=== PATIENT | male | born 1945 | race Caucasian/White ===

== ENCOUNTER 2020-02-09 07:05 | Day surgery (SDC) | payer MEDICARE ==
[2020-02-09] MEDS ORDERED: fentaNYL 100 MCG/2 ML SDV ONE (07:24)
[2020-02-09] MEDS ORDERED: Propofol 200 MG/20 ML SDV ONE (07:24)
[2020-02-09] MEDS ORDERED: Midazolam 1 MG/ML 2 ML SDV ONE (07:25)
[2020-02-09] MEDS ORDERED: Sodium Chloride 0.9% 1,000 ML IV SCH (07:30)
[2020-02-09 09:49] VITALS: BP 129/71; PULSE 77
--- NOTE | 2020-02-10 04:02 | PROC ---
DATE OF PROCEDURE: SURGEON: Terence Campos MD INDICATION: Satnam is a 74-year-old male, who comes in for a colonoscopy as he has had a positive Cologuard. The risks and benefits were explained to the patient and was taken to the OR. PROCEDURE IN DETAIL: Anesthesia was given by nurse regulatory affairs associate. During the procedure, we used 2 mcg of Versed, 100 mg of propofol, and 100 mg of . The Olympus 180AL scope was used during the procedure. The rectum was examined with a gloved finger, then the tube was placed into the rectum and advanced under direct vision. We did get to the cecum and even anastomosis. Upon retraction of the tube, we noted a polyp at 35 cm. This was removed by polypectomy snare and there was no bleeding noted after the procedure. The tube was removed and no other abnormality was noted. The patient tolerated the procedure well. PREOPERATIVE DIAGNOSIS: Positive Cologuard, status post colon resection. POSTOPERATIVE DIAGNOSIS: Cecum at 35 cm, snared and removed and harvested. This will be sent to the pathologist. Terence Campos MD /[id number]
== END 2020-02-09 10:17 | disposition home or self-care (01) ==
LOC: JP.SDS 07:05
PROVIDERS: ATTEND Internal Medicine
DX: K63.5 Polyp of colon (principal); N18.9 Chronic kidney disease, unspecified; Z90.49 Acquired absence of other specified parts of digestive tract; Z88.8 Allergy status to other drugs, medicaments and biological substances
CPT/HCPCS: 45385; J2250; J2704; J3010; J7030; 88305

== ENCOUNTER 2022-04-21 04:02 | Emergency (ER) | payer MEDICARE ==
[2022-04-21 04:26] VITALS: BP 143/68; PULSE 86
[2022-04-21] MEDS ORDERED: Gabapentin 300 MG Cap PO ONE (04:49)
[2022-04-21] MEDS ORDERED: Pantoprazole 40 MG Tab.CR PO STA (05:43)
== END 2022-04-21 06:41 | disposition home or self-care (01) ==
LOC: JP.ED 04:02
DX: U07.1 COVID-19 (principal); R06.6 Hiccough; I48.91 Unspecified atrial fibrillation; Z88.8 Allergy status to other drugs, medicaments and biological substances; Z79.01 Long term (current) use of anticoagulants
CPT/HCPCS: 99283; A9270

== ENCOUNTER 2024-07-07 02:43 | Emergency (ER) | payer MEDICARE ==
[2024-07-07 03:29] LABS: BASOPHILS ABSOLUTE AUTO 0.06 K/uL (0.00-0.10); BASOPHILS PERCENT AUTO 0.4 % (0.1-1.3); EOSINOPHILS ABSOLUTE AUTO 0.33 K/uL (0.00-0.40); EOSINOPHILS PERCENT AUTO 2.1 % (0.0-5.4); HEMATOCRIT 42.2 % (38.4-49.7); HEMOGLOBIN 14.5 g/dL (12.9-16.9); IMMATURE GRAN ABSOLUTE AUTO 0.08 K/uL (0.00-0.23); IMMATURE GRAN PERCENT AUTO 0.5 % (0.0-0.7); LYMPHOCYTES ABSOLUTE AUTO 1.95 K/uL (0.8-3.3); LYMPHOCYTES PERCENT AUTO 12.1 % (11.4-47.7); MEAN CORPUSCULAR HEMOGLOBIN 32.4 pg (31.6-35.5); MEAN CORPUSCULAR HGB CONC 34.4 g/dL (31.6-35.5); MEAN CORPUSCULAR VOLUME 94.4 fL (81.4-99.0); MONOCYTES ABSOLUTE AUTO 0.68 K/uL (0.20-0.90); MONOCYTES PERCENT AUTO 4.2 % (3.3-12.6); NEUTROPHILS ABSOLUTE AUTO 12.95 K/uL (1.0-7.6); NEUTROPHILS PERCENT AUTO 80.7 % (40.0-78.1); PLATELET COUNT,PLT 206 K/uL (130-375); RED BLOOD CELL COUNT 4.47 M/uL (4.14-5.76); WHITE BLOOD CELL COUNT,WBC 16.1 K/uL (3.2-11.0)
[2024-07-07 03:52] LABS: ANION GAP 10.4 mmol/L (5.0-14.0); C-REACTIVE PROTEIN 0.52 mg/dL (<0.50); CALCIUM 9.3 mg/dL (8.5-10.1); CREATININE 1.4 mg/dL (0.8-1.3); EST CRCL DRUG DOSING (CG) 45.42 mL/min; POTASSIUM,K 3.4 mmol/L (3.6-5.2)
[2024-07-07 04:02] LABS: LACTIC ACID 1.2 mmol/L (0.4-2.0)
[2024-07-07 04:07] LABS: APPEARANCE,URINE CLEAR (CLEAR); BILIRUBIN,URINE NEGATIVE (NEGATIVE); COLOR,URINE YELLOW (YELLOW); GLUCOSE,URINE NEGATIVE (NEGATIVE); KETONES,URINE TRACE mg/dL (NEGATIVE); LEUKOCYTE ESTERASE,URINE NEGATIVE (NEGATIVE); NITRITE,URINE NEGATIVE (NEGATIVE); OCCULT BLOOD,URINE TRACE-INTACT (NEGATIVE); PH,URINE 6.5 (5.0-8.0); PROTEIN,URINE NEGATIVE (NEGATIVE); UROBILINOGEN,URINE 0.2 EU/dL (0.2-1.0)
[2024-07-07 04:18] LABS: AMORPHOUS SEDIMENT,URINE NOT SEEN; BACTERIA,URINE RARE; EPITHELIAL CELLS,URINE RARE; MUCUS,URINE RARE; RBC,URINE 0-5 (0-5); WBC,URINE 0-5 (0-5)
[2024-07-07 04:41] LABS: INR 2.1; PROTHROMBIN TIME 20.8 sec (9.2-10.6)
[2024-07-07] MEDS: Heparin Sodium 5,000 Units/ML Vial IVPUSH ONE (04:59)
[2024-07-07] MEDS: Aspirin 81 MG Tab.Chew PO ONE (04:59)
[2024-07-07] MEDS: Heparin Sodium/D5W 25,000 UNITS/500 ML BAG IV SCH (04:59)
[2024-07-07] MEDS ORDERED: Naloxone 0.4 MG/ML SDV IVPUSH PRN (05:16)
[2024-07-07] MEDS: Morphine 2 MG/ML SYRINGE IVPUSH ONE (05:26)
[2024-07-07] MEDS: Sodium Chloride 0.9% 1,000 ML IV SCH (05:26)
[2024-07-07 05:57] VITALS: BP 166/82; PULSE 107
== END 2024-07-07 06:09 | disposition other institution (70) ==
LOC: JP.ED 02:43
DX: I21.4 Non-ST elevation (NSTEMI) myocardial infarction (principal); I48.91 Unspecified atrial fibrillation; I10 Essential (primary) hypertension; Z86.16 Personal history of COVID-19; Z90.49 Acquired absence of other specified parts of digestive tract; Z88.8 Allergy status to other drugs, medicaments and biological substances; Z79.01 Long term (current) use of anticoagulants; Z79.899 Other long term (current) drug therapy
CPT/HCPCS: 36415; 71045; 80048; 81001; 83605; 84145; 84484; 85025; 85610; 86140; 87428; 93005; 96365; 96375; 99285; A9270; J1644; J2270; J7030; 93010

== ENCOUNTER 2025-04-17 16:59 | Emergency (ER) | payer MEDICARE ==
[2025-04-17 17:35] LABS: BASOPHILS ABSOLUTE AUTO 0.08 K/uL (0.00-0.10); BASOPHILS PERCENT AUTO 0.6 % (0.1-1.3); EOSINOPHILS ABSOLUTE AUTO 0.44 K/uL (0.00-0.40); EOSINOPHILS PERCENT AUTO 3.5 % (0.0-5.4); IMMATURE GRAN ABSOLUTE AUTO 0.10 K/uL (0.00-0.23); IMMATURE GRAN PERCENT AUTO 0.8 % (0.0-0.7); LYMPHOCYTES ABSOLUTE AUTO 2.84 K/uL (0.8-3.3); LYMPHOCYTES PERCENT AUTO 22.5 % (11.4-47.7); MONOCYTES ABSOLUTE AUTO 0.97 K/uL (0.20-0.90); MONOCYTES PERCENT AUTO 7.7 % (3.3-12.6); NEUTROPHILS ABSOLUTE AUTO 8.20 K/uL (1.0-7.6); NEUTROPHILS PERCENT AUTO 64.9 % (40.0-78.1); PLATELET COUNT,PLT 194 K/uL (130-375); RED BLOOD CELL COUNT 3.76 M/uL (4.14-5.76); WHITE BLOOD CELL COUNT,WBC 12.6 K/uL (3.2-11.0)
[2025-04-17 17:47] LABS: A/G RATIO 1.3 (1.2-2.2); ALANINE AMINOTRANSFERASE,ALT 27 U/L (12-78); ASPARTATE AMNIOTRANSFERASE,AST 24 U/L (15-37); BILIRUBIN TOTAL 1.1 mg/dL (0.2-1.0); BLOOD UREA NITROGEN,BUN 20 mg/dL (7-18); CARBON DIOXIDE,CO2 29 mmol/L (21-32); CHLORIDE,CL 96 mmol/L (100-108); CREATININE 1.4 mg/dL (0.8-1.3); ESTIMATED GFR 50 mL/min (>60); GLUCOSE RANDOM 99 mg/dL (74-106); POTASSIUM,K 3.6 mmol/L (3.6-5.2); PROTEIN TOTAL,TP 6.8 g/dL (6.4-8.2); SODIUM,NA 133 mmol/L (140-148)
[2025-04-17 17:48] LABS: TROPONIN I HIGH SENSITIVITY 105.6 pg/mL (<=60.3)
[2025-04-17 17:55] LABS: AMPHETAMINES SCREEN, URINE NEGATIVE (NEGATIVE); APPEARANCE,URINE CLEAR (CLEAR); GLUCOSE,URINE NEGATIVE (NEGATIVE); METHADONE SCREEN, URINE NEGATIVE (NEGATIVE); METHAMPHETAMINES SCREEN, URINE NEGATIVE (NEGATIVE); OCCULT BLOOD,URINE NEGATIVE (NEGATIVE); OXYCODONE SCREEN,URINE NEGATIVE (NEGATIVE); PROPOXYPHENE SCREEN,URINE NEGATIVE (NEGATIVE); THC SCREEN,URINE 50 NG/ML NEGATIVE (NEGATIVE)
[2025-04-17 18:01] LABS: SQUAMOUS EPITHELIAL CELLS,UR RARE /HPF; UROTHELIAL CELLS,URINE NOT SEEN /HPF
[2025-04-17 18:55] VITALS: BP 136/72; PULSE 72
== END 2025-04-17 19:51 | disposition other institution (70) ==
LOC: JP.ED 16:59
DX: I21.4 Non-ST elevation (NSTEMI) myocardial infarction (principal); I10 Essential (primary) hypertension; I48.91 Unspecified atrial fibrillation; I25.2 Old myocardial infarction; E78.00 Pure hypercholesterolemia, unspecified; M19.90 Unspecified osteoarthritis, unspecified site; Z79.899 Other long term (current) drug therapy; Z79.01 Long term (current) use of anticoagulants; Z86.16 Personal history of COVID-19; Z90.49 Acquired absence of other specified parts of digestive tract
CPT/HCPCS: 36415; 80053; 80305; 81001; 84484; 85025; 93010; 96360; 99285; J7030